=== PATIENT | male | born 1970 ===

== ENCOUNTER 2017-11-19 13:31 | Emergency (ER) | payer BC ==
[2017-11-19 13:39] VITALS: BP 140/77; PULSE 80; RESP 16; TEMP 98.1; O2SAT 99
--- NOTE | 2017-11-19 13:46 | ED PDOC ---
Arrival/HPI - General Chief Complaint: Medical Clearance Time Seen by Provider: 11/19/17 13:31 - History of Present Illness Narrative History of Present Illness (Text): 11/19/17 13:43 47 yo male, no prior hx, presents with rectal pain. as per pt, started yesterday. pt reports had episode of diarrhea, and then had pain "inside his rectum". no abdominal pain no melena hematochezia, no other complaints. Past Medical History - Infectious Disease Hx of Infectious Diseases: None - Psychiatric Hx Substance Use: No - Anesthesia Hx Anesthesia: No Family/Social History Family/Social History: Unknown Family HX Smoking Status: Never Smoked Hx Alcohol Use: No Hx Substance Use: No Allergies/Home Meds Allergies/Adverse Reactions: Allergies No Known Allergies Allergy (Verified 11/19/17 13:36) Review of Systems - Review of Systems Constitutional: Normal Eyes: Normal ENT: Normal Respiratory: Normal Cardiovascular: Normal Gastrointestinal: Normal Genitourinary Male: Normal Musculoskeletal: Normal Skin: Normal Neurological: Normal Endocrine: Normal Hemo/Lymphatic: Normal Psychiatric: Normal Physical Exam Vital Signs Temp Pulse Resp BP Pulse Ox 11/19/17 13:36 98.1 F 80 16 140/77 99 Temperature: Afebrile Blood Pressure: Normal Pulse: Regular Respiratory Rate: Normal Appearance: Positive for: Well-Appearing, Non-Toxic, Comfortable Pain Distress: None Mental Status: Positive for: Alert and Oriented X 3 - Systems Exam Head: Present: Atraumatic, Normocephalic Pupils: Present: PERRL Extroacular Muscles: Present: EOMI Conjunctiva: Present: Normal Mouth: Present: Moist Mucous Membranes Neck: Present: Normal Range of Motion Respiratory/Chest: Present: Clear to Auscultation, Good Air Exchange. No: Respiratory Distress, Accessory Muscle Use Cardiovascular: Present: Regular Rate and Rhythm, Normal S1, S2. No: Murmurs Abdomen: Present: Normal Bowel Sounds. No: Tenderness, Distention, Peritoneal Signs Rectal: Present: Rectal Tenderness, Normal Rectal Tone. No: Occult Blood, Gross Blood, Melena, Hemorrhoids (external) Back: Present: Normal Inspection Upper Extremity: Present: Normal Inspection. No: Cyanosis, Edema Lower Extremity: Present: Normal Inspection. No: Edema Neurological: Present: GCS=15, CN II-XII Intact, Speech Normal Skin: Present: Warm, Dry, Normal Color. No: Rashes Psychiatric: Present: Alert, Oriented x 3, Normal Insight, Normal Concentration Medical Decision Making ED Course and Treatment: 11/19/17 13:45 suspect anal fissure vs less likely abscess internal hemorrhoid. labs imaging pendign 11/19/17 20:[address] pain improved. advise outpt fu and return precautions - Lab Interpretations Lab Results: 11/19/17 13:50 11/19/17 13:50 Lab Results 11/19/17 13:50: Sodium 143, Potassium 3.7, Chloride 105, Carbon Dioxide 26, Anion Gap 16, BUN 12, Creatinine 1.0, Est GFR ( Amer) > 60, Est GFR (Non- Af Amer) > 60, Random Glucose 100, Calcium 9.2, Total Bilirubin 0.8, AST 38, ALT 45, Alkaline Phosphatase 109, Total Protein 7.5, Albumin 4.0, Globulin 3.5, Albumin/Globulin Ratio 1.1 11/19/17 13:50: PT 12.5, INR 1.09 H, APTT 29.9 11/19/17 13:50: WBC 7.7, RBC 4.58, Hgb 14.1, Hct 41.7 L, MCV 91.0, MCH 30.8, MCHC 33.8, RDW 12.9, Plt Count 213, MPV 10.3, Gran % 52.5, Lymph % (Auto) 29.4, [place] % (Auto) 9.9 H, Eos % (Auto) 7.8 H, Baso % (Auto) 0.4, Gran # 4.04, Lymph # (Auto) 2.3, [place] # (Auto) 0.8 H, Eos # (Auto) 0.6, Baso # (Auto) 0.03 - RAD Interpretation Radiology Orders: 11/19/17 13:43 PELVIS W/IV CONTRAST ONLY [CT] Stat Disposition/Present on Arrival - Present on Arrival Any Indicators Present on Arrival: No History of DVT/PE: No History of Uncontrolled Diabetes: No Urinary Catheter: No History of Decub. Ulcer: No History Surgical Site Infection Following: None - Disposition Have Diagnosis and Disposition been Completed?: Yes Diagnosis: Rectal pain Disposition: HOME/ ROUTINE Disposition Time: 01:00 Condition: STABLE Discharge Instructions (ExitCare): Anal Fissure (DC) Additional Instructions: return to er with worsening symptoms or concerns. Prescriptions: Hard Fat/Phenylephrine [place] [Anusol Suppository] 1 sup RC BID #14 sup Referrals: Amber Jarrell MD [Primary Care Provider] - Follow up with primary Andrew Tellez MD [Medical Doctor] - Follow up with primary Forms: [employer] (Lao)
[2017-11-19 13:58] LABS: BASO # 0.03 K/mm3 (0.0-2.0); BASO % 0.4 % (0.0-3.0); EOS # 0.6 (0.0-0.7); EOS % 7.8 % (1.5-5.0); GRAN # 4.04 (1.4-6.5); GRAN % 52.5 % (50.0-68.0); HEMOGLOBIN 14.1 g/dL (14.0-18.0); LYMPH # 2.3 (1.2-3.4); LYMPH % 29.4 % (22.0-35.0); MEAN CORPUSCULAR HEMOGLOBIN 30.8 pg (25.0-35.0); MEAN CORPUSCULAR HGB CONC 33.8 g/dl (31.0-37.0); MEAN PLATELET VOLUME 10.3 fl (7.0-11.0); MONO # 0.8 (0.1-0.6); MONO % 9.9 % (1.0-6.0); RBC 4.58 10^6/uL (3.5-6.1); RED CELL DISTRIBUTION WIDTH 12.9 % (11.5-14.5); WHITE BLOOD COUNT 7.7 10^3/ul (4.5-11.0)
[2017-11-19 14:14] LABS: ALB/GLOB RATIO 1.1 (1.1-1.8); ALT/SGPT 45 U/L (7-56); AST/SGOT 38 U/L (17-59); BLOOD UREA NITROGEN 12 mg/dL (7-21); CALCIUM 9.2 mg/dL (8.4-10.5); GFR AFRICAN-AMERICAN > 60; GFR NON-AFRICAN AMERICAN > 60; INR 1.09 (0.93-1.08); PARTIAL THROMBOPLASTIN TIME 29.9 Seconds (25.1-36.5); PROTHROMBIN TIME 12.5 SECONDS (9.4-12.5)
[2017-11-19] MEDS ORDERED: Iohexol 350 MG/100 ML VIAL ONE (14:37)
--- NOTE | 2017-11-19 15:16 | CT ---
PROCEDURE: CT Pelvis with contrast HISTORY: rectal pain COMPARISON: None. TECHNIQUE: Contiguous axial images of the pelvis with contrast. Coronal and sagittal reformats generated. Contrast dose: 95 mL Omniscan 350 Radiation dose: Total exam DLP = 970.27 mGy-cm. This CT exam was performed using one or more of the following dose reduction techniques: Automated exposure control, adjustment of the mA and/or kV according to patient size, and/or use of iterative reconstruction technique. FINDINGS: BLADDER: Grossly normal in appearance. No mass. REPRODUCTIVE ORGANS: The prostate gland is normal in size. VISUALIZED BOWEL: The visualized bowel is normal in caliber. No bowel dilatation. PERITONEUM: No free fluid. No free air. LYMPH NODES: No enlarged lymph nodes. VASCULATURE: There is normal intravascular enhancement. BONES: No fracture or focal lesion. OTHER FINDINGS: None. IMPRESSION: No acute pelvic abnormality. Specifically, no evidence for perirectal abscess, pelvic mass or free fluid in the pelvis.
== END 2017-11-19 15:34 | disposition home or self-care (01) ==
LOC: ED 13:31
DX: K62.89 Other specified diseases of anus and rectum (principal)
CPT/HCPCS: 72193; 80053; 85025; 85610; 85730; 99282; Q9967